=== PATIENT | male | born 1960 | race Caucasian/White ===

== ENCOUNTER 2017-11-30 12:14 | Inpatient (IN) | payer OTHER ==
[2017-11-30 13:11] VITALS: BMI 45.6
--- NOTE | 2017-11-30 14:48 | HP ---
CIWA Score - CIWA Score Nausea/Vomitin-Mild Nausea/No Vomiting Muscle Tremors: 4-Moderate,w/Arms Extend Anxiety: 4-Mod. Anxious/Guarded Agitation: 4-Moderately Restless Paroxysmal Sweats: 1-Minimal Palms Moist Orientation: 3-Disoriented Date>2 days Tacttile Disturbances: 0-None Auditory Disturbances: 0-None Visual Disturbances: 0-None Headache: 0-None Present CIWA-Ar Total Score: 17 Admission ROS S - HPI Chief Complaint: withdrawal sx 57 years old mentally disabled male join [facility] since 2006 operated by [facility] patient understands that five days alcohol detox is necessary due to unknown seizure alcohol related 10+ years ago, patient is going to return to the residential after detox at [address] [place] [address] patient is under the care of Ekaterina Paul Director of [employer] [phone] Cell [phone] and fax [phone] Allergies/Adverse Reactions: Allergies Allergy/AdvReac Type Severity Reaction Status Date / Time No Known Allergies Allergy Verified 11/30/17 14:44 History of Present Illness: 57 years old male with long history of alcohol dependent has hypothyroid depression and mental challenged raised in residential is admitted to detox Exam Limitations: No Limitations - Ebola screening Have you traveled outside of the country in the last 21 days: No Have you had contact with anyone from an Ebola affected area: No Have you been sick,other than usual withdrawal symptoms: No Do you have a fever: No - Review of Systems Constitutional: Changes in sleep, Weight Stable EENT: reports: Blurred Vision (eye glasses) Respiratory: reports: No Symptoms reported Cardiac: reports: No Symptoms Reported GI: reports: Nausea, Poor Fluid Intake, Abdominal cramping : reports: No Symptoms Reported Musculoskeletal: reports: No Symptoms Reported Integumentary: reports: Lumps (multiple lumps cover face arms trunk and legs since "child" no treatment) Neuro: reports: Seizure (alcohol related seizure unknown time period), Tremors Endocrine: reports: Unexplained Weight Gain Hematology: reports: No Symptoms Reported Psychiatric: reports: Judgement Intact, Depressed Other Systems: Reviewed and Negative Patient History - Patient Medical History Hx Anemia: No Hx Asthma: No Hx Chronic Obstructive Pulmonary Disease (COPD): No Hx Cancer: No Hx Cardiac Disorders: No Hx Congestive Heart Failure: No Hx Hypertension: No Hx Hypercholesterolemia: No Hx Pacemaker: No HX Cerebrovascular Accident: No Hx Seizures: Yes (alcohol related) Hx Dementia: No Hx Diabetes: No Hx Gastrointestinal Disorders: No Hx Liver Disease: No Hx Genitourinary Disorders: No Hx Sexually Transmitted Disorders: No Hx Renal Disease (ESRD): No Hx Thyroid Disease: Yes (synthroid) Hx Human Immunodeficiency Virus (HIV): No Hx Hepatitis C: No Hx Depression: Yes Hx Suicide Attempt: No Hx Bipolar Disorder: No Hx Schizophrenia: No - Patient Surgical History Past Surgical History: No - PPD History Previous Implant?: Yes Documented Results: Negative w/o proof Implanted On Prior [facility] Admission?: No PPD to be Administered?: Yes - Smoking Cessation Smoking history: Never smoked Have you smoked in the past 12 months: No Hx Chewing Tobacco Use: No Initiated information on smoking cessation: No - Substance & Tx. History Hx Alcohol Use: Yes Substance Use Type: Alcohol Hx Substance Use Treatment: Yes (2001 ) - Substances Abused Alcohol Route: Oral Frequency: Daily Amount used: pint vodka Age of first use: 20 Date of Last Use: 11/30/17 Family Disease History - Family Disease History Family History: Unable to Obtain (grow up in residential) Admission Physical Exam S - Vital Signs Vital Signs: Vital Signs - 24 hr 11/30/17 13:05 Temperature 97.2 F L Pulse Rate 105 H Respiratory 18 Rate Blood Pressure 164/93 - Physical General Appearance: Yes: Appropriately Dressed, Moderate Distress, Obese, Tremorous, Irritable, Sweating, Anxious HEENTM: Yes: Hearing grossly Normal, Normal ENT Inspection, Normocephalic, Normal Voice Respiratory: Yes: Chest Non-Tender, Lungs Clear, Normal Breath Sounds, No Respiratory Distress, No Accessory Muscle Use Neck: Yes: Supple, Trachea in good position Breast: Yes: Breasts Symetrical Cardiology: Yes: Regular Rhythm, S1, S2, Tachycardia (withdrawal) Abdominal: Yes: Non Tender, Soft Genitourinary: Yes: Within Normal Limits Back: Yes: Normal Inspection Musculoskeletal: Yes: full range of Motion, Gait Steady Extremities: Yes: Normal Inspection (multiple lumps), Normal Range of Motion, Non-Tender, Tremors Neurological: Yes: Alert, Motor Strength 5/5, Normal Response, Depressed Affect Integumentary: Yes: Warm, Other (multiple lumps) Lymphatic: Yes: Within Normal Limits - Diagnostic (1) Alcohol dependence with uncomplicated withdrawal Current Visit: Yes Status: Acute (2) Hypothyroid Current Visit: Yes Status: Chronic Qualifiers: Hypothyroidism type: acquired Qualified Code(s): E03.9 - Hypothyroidism, unspecified (3) Depression Current Visit: Yes Status: Suspected Qualifiers: Depression Type: dysthymia Qualified Code(s): F34.1 - Dysthymic disorder (4) Circumscribed scleroderma, 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
[2017-11-30] MEDS ORDERED: MAGNESIUM HYDROX 2400MG/30ML ORAL SUSPENSION 30 ML CUP PO PRN (14:58)
[2017-11-30] MEDS ORDERED: MENTHOL/PHENOL 1 EACH UD MM PRN (14:58)
[2017-11-30] MEDS ORDERED: MAG HYDROX/AL HYDROX/SIMETH 30 ML UNIT-DOSE CUP PO PRN (14:58)
[2017-11-30] MEDS ORDERED: IBUPROFEN 400 MG TABLET (FP) PO PRN (14:58)
[2017-11-30] MEDS ORDERED: ACETAMINOPHEN 325 MG TABLET (FP) PO PRN (14:58)
[2017-11-30] MEDS ORDERED: guaiFENesin/D-METHORPHAN HB 10 ML UNIT-DOSE CUPS PO PRN (14:58)
[2017-11-30] MEDS ORDERED: chlordiazePOXIDE HCL 25 MG CAPSULE PO PRN (14:58)
[2017-11-30] MEDS ORDERED: LOPERAMIDE HCL 2 MG CAPSULE PO PRN (14:58)
[2017-11-30] MEDS ORDERED: MAGNESIUM CITRATE 300 ML BOTTLE PO PRN (14:58)
[2017-11-30] MEDS ORDERED: P-EPHED 60MG/TRIPROLIDI 2.5MG TABLET PO PRN (14:58)
[2017-11-30] MEDS: chlordiazePOXIDE HCL 25 MG CAPSULE PO SCH ×2 (17:29→22:28)
[2017-11-30] MEDS: THIAMINE HCL 100 MG TABLET (FP) PO SCH (22:28)
[2017-12-01] MEDS: chlordiazePOXIDE HCL 25 MG CAPSULE PO SCH ×4 (05:17→22:15)
[2017-12-01] MEDS ORDERED: LEVOTHYROXINE NA 75 MCG TABLET (FP) PO SCH (07:00)
[2017-12-01] MEDS: LEVOTHYROXINE NA 25 MCG TABLET (FP) PO SCH (07:12)
[2017-12-01 09:53] LABS: HEMATOCRIT 47.6 % (35.4-49); HEMOGLOBIN 15.8 GM/dL (11.7-16.9); MCH 31.4 pg (25.7-33.7); MCHC 33.1 g/dl (32.0-35.9); MEAN CELL VOLUME 94.8 fl (80-96); MEAN PLT VOLUME 9.3 fl (7.5-11.1); RBC 5.01 M/mm3 (4.00-5.60); RDW 14.4 % (11.9-15.9); WHITE BLOOD COUNT 4.7 K/mm3 (4.0-10.0)
[2017-12-01] MEDS ORDERED: LEVOTHYROXINE NA 125 MCG TABLET (FP) PO SCH (10:00)
[2017-12-01] MEDS: PRENATAL VITAMINS W/ FOLIC ACID TABLET (FP) PO SCH (10:27)
[2017-12-01 10:36] LABS: CHLORIDE 107 mmol/L (98-107); POTASSIUM 4.1 mmol/L (3.5-5.1); SODIUM 140 mmol/L (136-145)
[2017-12-01 11:01] LABS: ALBUMIN 3.7 g/dl (3.4-5.0); ALK PHOS 98 U/L (45-117); ANION GAP 12 (8-16); BILIRUBIN,TOTAL 0.3 mg/dL (0.2-1.0); BLOOD UREA NITROGEN 13 mg/dL (7-18); CALCIUM 8.5 mg/dL (8.5-10.1); CO2 21 mmol/L (21-32); CREATININE 0.8 mg/dL (0.7-1.3); GLUCOSE,RANDOM 101 mg/dL (74-106); SGOT/AST 21 U/L (15-37); SGPT/ALT 28 U/L (12-78); TOT PROT 7.2 g/dl (6.4-8.2)
--- NOTE | 2017-12-01 11:05 | PN ---
[facility] CIWA - CIWA Score Nausea/Vomitin-No Nausea/No Vomiting Muscle Tremors: 4-Moderate,w/Arms Extend Anxiety: 4-Mod. Anxious/Guarded Agitation: 4-Moderately Restless Paroxysmal Sweats: 1-Minimal Palms Moist Orientation: 0-Oriented Tacttile Disturbances: 3-Moderate Itch/Numb/Burn Auditory Disturbances: 0-None Visual Disturbances: 0-None Headache: 0-None Present CIWA-Ar Total Score: 16 BHS Progress Note (SOAP) Subjective: ANXIETY,SWEATS,TREMORS,INTERMITTENT SLEEP Objective: 12/01/17 11:04 Vital Signs Temperature 97.4 F L 12/01/17 09:45 Pulse Rate 79 12/01/17 09:45 Respiratory Rate 18 12/01/17 09:45 Blood Pressure 147/83 12/01/17 09:45 O2 Sat by Pulse Oximetry (%) Laboratory Last Values WBC 4.7 K/mm3 (4.0-10.0) 12/01/17 05:45 RBC 5.01 M/mm3 (4.00-5.60) 12/01/17 05:45 Hgb 15.8 GM/dL (11.7-16.9) 12/01/17 05:45 Hct 47.6 % (35.4-49) 12/01/17 05:45 MCV 94.8 fl (80-96) 12/01/17 05:45 MCH 31.4 pg (25.7-33.7) 12/01/17 05:45 MCHC 33.1 g/dl (32.0-35.9) 12/01/17 05:45 RDW 14.4 % (11.9-15.9) 12/01/17 05:45 MPV 9.3 fl (7.5-11.1) 12/01/17 05:45 OTHER LABS PENDING Assessment: 12/01/17 11:04 WITHDRAWAL SX Plan: CONTINUE DETOX
--- NOTE | 2017-12-01 11:23 | CONSULT ---
[facility] Psychiatric Consult - Data Date of interview: 12/01/17 Admission source: [facility] Identifying data: First admission to [facility] for this 57 y/o male referred for detox treatment on for alcohol dependence.Patient is single without children,domiciled (lives in an Adult Home run by the [employer]),unemployed,disabled and supported on SSI benefits. Substance Abuse History: Discussed with patient.Mr Stringer admits to continuous use of alcohol (beer).See details in current [facility] report. Smoking history: Never smoked. Have you smoked in the past 12 months: No. Hx Chewing Tobacco Use: No. Initiated information on smoking cessation: No. - Substance & Tx. History. Hx Alcohol Use: Yes. Substance Use Type: Alcohol. Hx Substance Use Treatment: Yes (2001 ). - Substances Abused. Alcohol. Route: Oral. Frequency: Daily. Amount used: pint vodka. Age of first use: 20. Date of Last Use: 11/30/17 Medical History: Hypertension,obesity,hypothyroidism and scleroderma. Psychiatric History: Patient admits to a history of multiple psychiatric hospitalizations.No recall of names of institutions.Mr Stringer is a poor historian due to intellectual disabilities.Diagnosed with Mild Mental Retardation and MDD.Medicated with zoloft 25 mg/day.Patient used to attend OPD treatment,under the supervision of Dr Alonso,at the [facility] ([facility]).Mr Stringer denies history of suicide attempts. Physical/Sexual Abuse/Trauma History: Patient denies. Additional Comment: Drug Screen is negative. Mental Status Exam - Mental Status Exam Alert and Oriented to: Place, Person Cognitive Function: Impaired (limited intellectual performance) Patient Appearance: Well Groomed (obese ; facial lesions of scleroderma) Mood: Withdrawn (calm), Hopeful (calm) Affect: Appropriate, Normal Range Patient Behavior: Appropriate (friendly), Cooperative Speech Pattern: Unclear (at times due to poor vocabulary), Delayed Voice Loudness: Normal Thought Process: Goal Oriented Thought Disorder: Bizarre Hallucinations: Denies Suicidal Ideation: Denies Homicidal Ideation: Denies Insight/Judgement: Poor Sleep: Well Appetite: Good Muscle strength/Tone: Normal Gait/Station: Normal Psychiatric Findings - Problem List ([place] 1, 2,3) (1) Alcohol dependence with uncomplicated withdrawal Current Visit: Yes Status: Acute (2) Alcohol-induced mood disorder Current Visit: Yes Status: Suspected (3) Depressive disorder Current Visit: Yes Status: Acute Comment: History.Currently treated with sertraline. (4) Learning disorder Current Visit: Yes Status: Chronic Comment: Strongly suspected. - Initial Treatment Plan Initial Treatment Plan: Orientation to unit.Psychoeducation.Patient is encouraged to attend groups,recreational activities and community meetings.Sertraline 25 mg po daily.Side effects/benefits discussed with the patient (using lay language).Mr Stringer agrees to follow this careplan.Observation.
[2017-12-01 11:33] LABS: PLATELET COUNT 149 K/MM3 (134-434)
--- NOTE | 2017-12-01 14:00 | EKG ---
Test Reason : Blood Pressure : / mmHG Vent. Rate : 099 BPM Atrial Rate : 099 BPM P-R Int : 142 ms QRS Dur : 094 ms QT Int : 346 ms P-R-T Axes : 030 060 001 degrees QTc Int : 444 ms NORMAL SINUS RHYTHM NORMAL ECG NO PREVIOUS ECGS AVAILABLE Confirmed by MD Kahlil, Lee ([id number]) on 12/01/2017 1:59:48 PM Referred By: Confirmed By:Lee Guillory MD
[2017-12-01] MEDS: THIAMINE HCL 100 MG TABLET (FP) PO SCH (22:15)
[2017-12-02] MEDS: chlordiazePOXIDE HCL 25 MG CAPSULE PO SCH ×2 (05:38→10:19)
[2017-12-02] MEDS: LEVOTHYROXINE NA 25 MCG TABLET (FP) PO SCH (06:58)
[2017-12-02] MEDS: SERTRALINE HCL 25 MG TABLET (FP) PO SCH (10:19)
[2017-12-02] MEDS: PRENATAL VITAMINS W/ FOLIC ACID TABLET (FP) PO SCH (10:19)
--- NOTE | 2017-12-02 10:55 | PN ---
[facility] CIWA - CIWA Score Nausea/Vomitin-No Nausea/No Vomiting Muscle Tremors: 4-Moderate,w/Arms Extend Anxiety: 4-Mod. Anxious/Guarded Agitation: 4-Moderately Restless Paroxysmal Sweats: 1-Minimal Palms Moist Orientation: 0-Oriented Tacttile Disturbances: 3-Moderate Itch/Numb/Burn Auditory Disturbances: 0-None Visual Disturbances: 0-None Headache: 0-None Present CIWA-Ar Total Score: 16 BHS Progress Note (SOAP) Subjective: SLIGHT ANXIETY,SWEATS,TREMORS,OOB WITH STEADY GAIT. Objective: 12/02/17 10:55 Vital Signs 12/02/17 12/02/17 12/02/17 03:30 06:02 09:28 Temperature 96.4 F L 97.8 F Pulse Rate 80 96 H Respiratory 18 18 20 Rate Blood Pressure 130/86 144/87 Laboratory Last Values WBC 4.7 K/mm3 (4.0-10.0) 12/01/17 05:45 RBC 5.01 M/mm3 (4.00-5.60) 12/01/17 05:45 Hgb 15.8 GM/dL (11.7-16.9) 12/01/17 05:45 Hct 47.6 % (35.4-49) 12/01/17 05:45 MCV 94.8 fl (80-96) 12/01/17 05:45 MCH 31.4 pg (25.7-33.7) 12/01/17 05:45 MCHC 33.1 g/dl (32.0-35.9) 12/01/17 05:45 RDW 14.4 % (11.9-15.9) 12/01/17 05:45 Plt Count 149 K/MM3 (134-434) 12/01/17 05:45 MPV 9.3 fl (7.5-11.1) 12/01/17 05:45 Platelet Comment No clumping noted 12/01/17 05:45 Sodium 140 mmol/L (136-145) 12/01/17 05:45 Potassium 4.1 mmol/L (3.5-5.1) 12/01/17 05:45 Chloride 107 mmol/L (98-107) 12/01/17 05:45 Carbon Dioxide 21 mmol/L (21-32) 12/01/17 05:45 Anion Gap 12 (8-16) 12/01/17 05:45 BUN 13 mg/dL (7-18) 12/01/17 05:45 Creatinine 0.8 mg/dL (0.7-1.3) 12/01/17 05:45 Creat Clearance w eGFR > 60 (>60) 12/01/17 05:45 Random Glucose 101 mg/dL (74-106) 12/01/17 05:45 Calcium 8.5 mg/dL (8.5-10.1) 12/01/17 05:45 Total Bilirubin 0.3 mg/dL (0.2-1.0) 12/01/17 05:45 AST 21 U/L (15-37) 12/01/17 05:45 ALT 28 U/L (12-78) 12/01/17 05:45 Alkaline Phosphatase 98 U/L (45-117) 12/01/17 05:45 Total Protein 7.2 g/dl (6.4-8.2) 12/01/17 05:45 Albumin 3.7 g/dl (3.4-5.0) 12/01/17 05:45 RPR Titer Nonreactive (NONREACTIVE) 12/01/17 05:45 Assessment: 12/02/17 10:55 WITHDRAWAL SX Plan: CONTINUE DETOX
[2017-12-02] MEDS: chlordiazePOXIDE 5 MG CAPSULE PO SCH ×2 (17:39→22:12)
[2017-12-02] MEDS: THIAMINE HCL 100 MG TABLET (FP) PO SCH (22:12)
[2017-12-03] MEDS: chlordiazePOXIDE 5 MG CAPSULE PO SCH ×2 (05:39→10:15)
[2017-12-03] MEDS: LEVOTHYROXINE NA 25 MCG TABLET (FP) PO SCH (05:59)
[2017-12-03] MEDS: SERTRALINE HCL 25 MG TABLET (FP) PO SCH (10:14)
[2017-12-03] MEDS: PRENATAL VITAMINS W/ FOLIC ACID TABLET (FP) PO SCH (10:14)
--- NOTE | 2017-12-03 10:38 | PN ---
[facility] Progress Note (SOAP) Subjective: OOB AROUND UNIT WITH STEADY GAIT.TREMORS RESOLVING. REPORTS LIBRIUM IS EFFECTIVE. Objective: 12/03/17 10:38 Vital Signs Temperature 97.2 F L 12/03/17 09:28 Pulse Rate 85 12/03/17 09:28 Respiratory Rate 20 12/03/17 09:28 Blood Pressure 131/84 12/03/17 09:28 O2 Sat by Pulse Oximetry (%) Laboratory Last Values WBC 4.7 K/mm3 (4.0-10.0) 12/01/17 05:45 RBC 5.01 M/mm3 (4.00-5.60) 12/01/17 05:45 Hgb 15.8 GM/dL (11.7-16.9) 12/01/17 05:45 Hct 47.6 % (35.4-49) 12/01/17 05:45 MCV 94.8 fl (80-96) 12/01/17 05:45 MCH 31.4 pg (25.7-33.7) 12/01/17 05:45 MCHC 33.1 g/dl (32.0-35.9) 12/01/17 05:45 RDW 14.4 % (11.9-15.9) 12/01/17 05:45 Plt Count 149 K/MM3 (134-434) 12/01/17 05:45 MPV 9.3 fl (7.5-11.1) 12/01/17 05:45 Platelet Comment No clumping noted 12/01/17 05:45 Sodium 140 mmol/L (136-145) 12/01/17 05:45 Potassium 4.1 mmol/L (3.5-5.1) 12/01/17 05:45 Chloride 107 mmol/L (98-107) 12/01/17 05:45 Carbon Dioxide 21 mmol/L (21-32) 12/01/17 05:45 Anion Gap 12 (8-16) 12/01/17 05:45 BUN 13 mg/dL (7-18) 12/01/17 05:45 Creatinine 0.8 mg/dL (0.7-1.3) 12/01/17 05:45 Creat Clearance w eGFR > 60 (>60) 12/01/17 05:45 Random Glucose 101 mg/dL (74-106) 12/01/17 05:45 Calcium 8.5 mg/dL (8.5-10.1) 12/01/17 05:45 Total Bilirubin 0.3 mg/dL (0.2-1.0) 12/01/17 05:45 AST 21 U/L (15-37) 12/01/17 05:45 ALT 28 U/L (12-78) 12/01/17 05:45 Alkaline Phosphatase 98 U/L (45-117) 12/01/17 05:45 Total Protein 7.2 g/dl (6.4-8.2) 12/01/17 05:45 Albumin 3.7 g/dl (3.4-5.0) 12/01/17 05:45 RPR Titer Nonreactive (NONREACTIVE) 12/01/17 05:45 Assessment: 12/03/17 10:38 WITHDRAWAL SX Plan: CONTINUE DETOX
[2017-12-03] MEDS: chlordiazePOXIDE HCL 10 MG CAPSULE PO SCH ×2 (17:29→22:11)
[2017-12-03 18:12] LABS: URINE APPEARANCE CLEAR; URINE BILIRUBIN NEGATIVE (NEGATIVE); URINE BLOOD NEGATIVE (NEGATIVE); URINE COLOR STRAW; URINE GLUCOSE (UA) NEGATIVE (NEGATIVE); URINE KETONE NEGATIVE (NEGATIVE); URINE LEUK ESTERASE NEGATIVE (NEGATIVE); URINE NITRITE NEGATIVE (NEGATIVE); URINE PROTEIN NEGATIVE (NEGATIVE); URINE UROBILINOGEN NEGATIVE mg/dL (0.2-1.0)
[2017-12-03] MEDS: THIAMINE HCL 100 MG TABLET (FP) PO SCH (22:11)
[2017-12-03 23:31] LABS: URINE APPEARANCE CLEAR; URINE BILIRUBIN NEGATIVE (NEGATIVE); URINE BLOOD NEGATIVE (NEGATIVE); URINE COLOR COLORLESS; URINE GLUCOSE (UA) NEGATIVE (NEGATIVE); URINE KETONE NEGATIVE (NEGATIVE); URINE LEUK ESTERASE NEGATIVE (NEGATIVE); URINE NITRITE NEGATIVE (NEGATIVE); URINE PROTEIN NEGATIVE (NEGATIVE); URINE UROBILINOGEN NEGATIVE mg/dL (0.2-1.0)
[2017-12-04] MEDS: chlordiazePOXIDE HCL 10 MG CAPSULE PO SCH ×2 (05:43→10:21)
[2017-12-04] MEDS: LEVOTHYROXINE NA 25 MCG TABLET (FP) PO SCH (06:55)
[2017-12-04] MEDS: SERTRALINE HCL 25 MG TABLET (FP) PO SCH (10:20)
[2017-12-04] MEDS: PRENATAL VITAMINS W/ FOLIC ACID TABLET (FP) PO SCH (10:20)
[2017-12-04] MEDS ORDERED: BISMUTH SUBSALICYLATE 262 MG/15 ML BTL PO PRN (13:21)
[2017-12-04] MEDS: THIAMINE HCL 100 MG TABLET (FP) PO SCH (22:17)
[2017-12-05] MEDS: LEVOTHYROXINE NA 25 MCG TABLET (FP) PO SCH (07:27)
[2017-12-05 09:54] VITALS: BP 136/87; PULSE 88; TEMP 96.9
[2017-12-05] MEDS: SERTRALINE HCL 25 MG TABLET (FP) PO SCH (10:55)
[2017-12-05] MEDS: PRENATAL VITAMINS W/ FOLIC ACID TABLET (FP) PO SCH (10:55)
--- NOTE | 2017-12-05 18:06 | DS ---
[facility] Detox Discharge Summary Admission Date: 11/30/17 Discharge Date: 12/05/17 - History Present History: Alcohol Dependence Additional Comments: PATIENT RETURNING HOME. PATIENT ADVISED TO CONSIDER LOCAL 12-STEP / AA OUTPATIENT SUPPORT GROUP MEETINGS FOR AFTERCARE. PATIENT WAS DISCHARGED FROM DETOX UNIT IN STABLE MEDICAL CONDITION. Pertinent Past History: Hypothyroidism, Depression, History of Seizures (ETOH related), Scleroderma. - Physical Exam Results Vital Signs: Vital Signs Temperature 96.9 F L 12/05/17 09:53 Pulse Rate 88 12/05/17 09:53 Respiratory Rate 12/05/17 09:53 Blood Pressure 136/87 12/05/17 09:53 O2 Sat by Pulse Oximetry (%) Pertinent Admission Physical Exam Findings: WITHDRAWAL SYMPTOMS. Laboratory Tests 12/01/17 12/01/17 12/01/17 05:45 05:45 05:45 WBC 4.7 RBC 5.01 Hgb 15.8 Hct 47.6 MCV 94.8 MCH 31.4 MCHC 33.1 RDW 14.4 Plt Count 149 MPV 9.3 Platelet Comment No clumping noted Sodium 140 Potassium 4.1 Chloride 107 Carbon Dioxide 21 Anion Gap 12 BUN 13 Creatinine 0.8 Creat Clearance w eGFR > 60 Random Glucose 101 Calcium 8.5 Total Bilirubin 0.3 AST 21 ALT 28 Alkaline Phosphatase 98 Total Protein 7.2 Albumin 3.7 Urine Color Urine Appearance Urine pH Ur Specific [place] Urine Protein Urine Glucose (UA) Urine Ketones Urine Blood Urine Nitrite Urine Bilirubin Urine Urobilinogen Ur Leukocyte Esterase RPR Titer Nonreactive 12/03/17 12/03/17 13:41 23:10 WBC RBC Hgb Hct MCV MCH MCHC RDW Plt Count MPV Platelet Comment Sodium Potassium Chloride Carbon Dioxide Anion Gap BUN Creatinine Creat Clearance w eGFR Random Glucose Calcium Total Bilirubin AST ALT Alkaline Phosphatase Total Protein Albumin Urine Color Straw Colorless Urine Appearance Clear Clear Urine pH 5.0 5.0 Ur Specific [place] 1.004 1.003 Urine Protein Negative Negative Urine Glucose (UA) Negative Negative Urine Ketones Negative Negative Urine Blood Negative Negative Urine Nitrite Negative Negative Urine Bilirubin Negative Negative Urine Urobilinogen Negative Negative Ur Leukocyte Esterase Negative Negative RPR Titer LABS NOTED. - Treatment Hospital Course: Detox Protocol Followed, Detoxed Safely, Responded well, Discharged Condition Good Patient has Accepted a Rehab Referral to: PT GOING HOME, ADVISED TO CONSIDE [facility] 12-STEP/AA SUPPORT GROUPS. - Medication Discharge Medications: Ambulatory Orders Sertraline HCl [Zoloft -] 25 mg PO DAILY 11/30/17 Levothyroxine [Synthroid -] 75 mcg PO DAILY 30 Days #30 tablet 12/05/17 Sertraline HCl [Zoloft -] 25 mg PO DAILY #30 tablet 12/05/17 - Diagnosis (1) Alcohol dependence with uncomplicated withdrawal Status: Acute (2) Depressive disorder Status: Acute (3) Circumscribed scleroderma, generalized type Status: Chronic (4) Hypothyroid Status: Chronic Qualifiers: Hypothyroidism type: acquired Qualified Code(s): E03.9 - Hypothyroidism, unspecified (5) Learning disorder Status: Chronic (6) Alcohol-induced mood disorder Status: Suspected - AMA Did Patient Leave Against Medical Advice: No
== END 2017-12-05 10:05 | disposition home or self-care (01) | DRG 775 ==
LOC: YASAS 12:14 → Y3N 16:18
PROVIDERS: ADMIT Internal Medicine; ATTEND Internal Medicine
PROC: HZ2ZZZZ Detoxification Services for Substance Abuse Treatment (ICD-10-PCS; principal; 2017-11-30)
DX: F10.230 Alcohol dependence with withdrawal, uncomplicated (principal); F10.24 Alcohol dependence with alcohol-induced mood disorder; F32.9 Major depressive disorder, single episode, unspecified; L94.0 Localized scleroderma [morphea]; E03.9 Hypothyroidism, unspecified; F81.9 Developmental disorder of scholastic skills, unspecified; R00.0 Tachycardia, unspecified; E66.9 Obesity, unspecified; Z68.42 Body mass index [BMI] 45.0-49.9, adult; Z86.69 Personal history of other diseases of the nervous system and sense organs
CPT/HCPCS: 36415; 80053; 81003; 85027; 86593; 93005; 93010